=== PATIENT | male | born 1935 | race Caucasian/White ===

== ENCOUNTER 2016-02-26 12:11 | Outpatient (CLI) | payer MEDICARE | END 2016-02-26 12:12 | disposition home or self-care (01) | DX: R05 Cough (principal); C78.00 Secondary malignant neoplasm of unspecified lung; R09.89 Other specified symptoms and signs involving the circulatory and respiratory systems ==

== ENCOUNTER 2016-12-26 09:35 | Outpatient (CLI) | payer MEDICARE ==
--- NOTE | 2016-12-26 20:00 | CONSULTATION NOTE ---
Palliative Care Consultation - Referral Referring Provider: Dr. 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 He had primary colon surgery of a right hemicolectomy followed with palliative chemotherapy of FOLFOX 6/Avastin. He has been treated on maintenance Xeloda and Avastin intermittently. He did have radiofrequency ablation to his liver lesion in 01/2015 as well as radiation to multiple lung nodules though he had developed radiation pneumonitis at that point in time. He does have some residual breathlessness. When he showed progression this last November with his CEA he did get put on Benita T can/Avastin for which she ended up with profound toxicity. And hospitalization with severe diarrhea and dehydration. At to this point in time, he is been very pleased with his quality of life, he has had some difficulty with hand-foot syndrome and intermittent fatigue, but with his last hospitalization is aware that his options are becoming more limited. He did have an initial conversation with Dr. Trujillo regarding end-of-life wishes and they did complete a POLST at that point in time and included do not attempt resuscitation as well as limited interventions.He has 6 children, and a ollie for which she has been 15 years who are very supportive of his journey and very much involved in his care. Medical/Surgical History - Past Medical History Cardiovascular: reports: Hypertension, High cholesterol Respiratory: reports: None, Shortness of breath (hx of radiation pneumonitis) Neuro: reports: Peripheral neuropathy Endocrine/Autoimmune: reports: None GI: reports: GERD, Colon polyps : reports: Benign prostate hypertrophy HEENT: reports: Chronic hearing loss Psych: denies: Depression, Anxiety Derm: reports: Other (hand/foot syndrome SE of chemotherapy) MRSA Hx?: No - Past Surgical History General: reports: Appendectomy, Bowel surgery, Colonoscopy HEENT: reports: Cataracts Social History - Living Situation Living arrangement: At home Living Situation: With spouse/s.o. Support System: He lost his first in 2000 suddenly with a massive cyst stroke,All over. They do take time visiting as well as he travels to see them as if you are out of country. He has a very supportive community through the [employer] as well as other community groups and neighbors whom he sees as helpful to both him and his . Family History - Family History Family History: Brother: , CAD, COPD/Emphysema, Diabetes, Type 2, Mental Illness, Obesity, Renal Disease/Failure Medications/Allergies - Medications Home Medications: Ambulatory Orders Medication Instructions Recorded Confirmed Sennosides [Senna] 8.6 mg PO DAILY PRN 07/17/12 12/26/16 Simvastatin 20 mg PO HS 07/17/12 12/26/16 Loperamide HCl [Anti-Diarrheal] 2 mg PO PRN PRN 07/31/12 12/26/16 Pyridoxine HCl [Vitamin B-6] 100 mg PO BID 08/14/12 12/26/16 Cholecalciferol (Vitamin D3) 5,000 unit PO DAILY 10/30/12 12/26/16 [Vitamin D3] Lactobacillus Rhamnosus GG 1 each PO DAILY 10/30/12 12/26/16 [Probiotic] Melatonin/Pyridoxine [Melatonin 3 1 each PO HS 10/30/12 12/26/16 mg Tablet] Multivitamin with Minerals 1 each PO DAILY 10/30/12 12/26/16 [Multiple Vitamin] Reinholds-3 Fatty Acids [Fish Oil] 300 mg PO DAILY 10/30/12 12/26/16 Calcium Carbonate/Vitamin D3 750 mg PO BID 01/06/13 12/26/16 [Calcium 500 + Vit D Caplet] Acetaminophen 500 mg PO Q6H PRN 09/01/13 12/26/16 Aspirin [Aspir 81] 81 mg PO DAILY 09/29/13 12/26/16 amLODIPine [Norvasc] 5 - 10 mg ORAL PRN PRN 02/23/14 12/26/16 Lisinopril/Hydrochlorothiazide 1 each PO DAILY 11/02/14 12/26/16 [Lisinopril-Hctz 20-12.5 mg Tab] Ondansetron HCl [Zofran] 4 mg PO Q4H PRN 11/28/16 12/26/16 Prochlorperazine Maleate 10 mg PO Q4H PRN 11/28/16 12/26/16 [Compazine] Urea 85 gm TP Q8H PRN 12/27/16 12/27/16 - Allergies Allergies/Adverse Reactions: Allergies Allergy/AdvReac Type Severity Reaction Status Date / Time No Known Drug Allergies Allergy Verified 06/19/12 09:11 Review of Systems - Constitutional Constitutional: reports: Fatigue (improving), Weight stable - Eyes Eyes: reports: Corrective lenses - Ears, Nose & Throat Ears, Nose & Throat: reports: Hearing loss, Hearing aids - Cardiovascular Cardiovascular: reports: Lightheadedness (at times), Decr. exercise tolerance - Respiratory Respiratory: reports: SOB with exertion - Gastrointestinal Gastrointestinal: reports: Good appetite. denies: Diarrhea, Nausea - Genitourinary Genitourinary: reports: Frequency (up to times at night or more) - Musculoskeletal Musculoskeletal: reports: Stiffness, Muscle weakness. denies: Assistive devices - Integumentary Integumentary: reports: Dryness (severe hand/foot disease with peeling on palms/ balls of feet) - Neurological Neurological: reports: Memory problems (feels some "chemo brain" though presented with no deficits) - Psychiatric Psychiatric: reports: Depression (occasional depressive symptoms; not persistent or pervasive) - Endocrine Endocrine: reports: Intolerance to cold, Intolerance to heat - Hematologic/Lymphatic Hematologic/Lymphatic: reports: Anemia, Bruising. denies: Recurrent infections - All Other Systems All Other Systems: reports: Reviewed and negative Physical Exam - Vital Signs Pulse Rate: 83 Respiratory Rate: 18 O2 Saturation: 98 Blood Pressure: 153/90 - Physical Exam General Appearance: positive: No acute distress Eyes Bilateral: positive: Normal inspection ENT: positive: No signs of dehydration Neck: positive: Trachea midline Cardiovascular: positive: Regular rate & rhythm Respiratory: positive: Diminished in bases. negative: Wheezes, Rales, Rhonchi Abdomen: positive: Soft Skin: positive: Dryness (cracking and peeling palms/no s/s of infection) Extremities: positive: No pedal edema Neurologic/Psychiatric: positive: Oriented x3, Mood/affect nml Palliative Care - POLST Patient has POLST: Yes POLST Status: DNR, Limited Interventions Pain: No pain Tiredness/Fatigue: Moderate (4-6), Comment (improving from hospitalization) Drowsiness/Sedation: None Nausea: None Depression: None Anxiety: None Dyspnea: Mild (1-3) Anorexia: None Sleep: Sleeps well Constipation: No Feelings of wellbeing/Perceived Quality of Life: Good, Acceptable Performance Status: Patient at baseline is quite active, he and his like to travel extensively , and are planning to take a trip over the . He is hoping his endurance will be improved at this point in time. He is independent in his ADLs, he does have a trilevel house so he is up and down the stairs, he has noticed that this is with more effort and less certainty but has had no falls. - Palliative Care Discussion: Patient's understanding is he does have a serious illness, he is fairly somewhat practical in his approach he relies on the advice and has confidence in his oncologist. He does recognize that there are limitations as far as a solution at this point in time. He does state "I am not in the last forever" he is hoping that he does have extended quality as well as quantity of life though is recognizing his options are becoming more limited. He is meeting with the [facility] oncologist and hopes to be able to initiate LONSURF. He is confident though if he is denied, that there is an alternative plan for which he of course would pursue at this point in time. He does not perceive himself as having depression or anxious, he has a strong Muslim deandre. With the of his first , he reports this led to some understanding in his own journey so does not really fear . He has not had much experience with hospice other than his brother who a year ago, his Kathy Wo was quite complicated and very extended. His goals are to finish his memoirs, continue the travel and visit his family. At the end of life a at home if this was acceptable to his . He does worry about the burden that this would be and wants to honor her journey with this as well. Results - Lab Results Lab results reviewed: Yes Impression and Recommendations - Palliative Care Impression: This is a ollie 81-year-old gentleman with metastatic colorectal cancer to the lung, liver, peritoneum. He has done actually fairly well through these last few years, most recently though he did have an acute hospitalization with a setback as far as energy, endurance, and recognizing somewhat more the seriousness of his illness. He remains quite hopeful and will be continuing therapy, most likely to restart again after the holidays. His goals again are to focus on quality and quantity of life he presents with low symptom burden today Recommendations/Counseling Done: Fatigue. This is multifactorial in origin, he is starting to improve after his hospitalization. His appetite is good he is building strength. Instruction regarding progressive ambulation, energy conservation, and normalizing this after his recent hospitalization. #2 hypertension. Patient reports this has been fluctuating though has a history of hypertension. He currently is on his hydrochlorothiazide/lisinopril. He has in the past used his amlodipine as needed. Instruction to take BPs for 1 week, if remains elevated greater than 140/90 to start amlodipine 10 mg half tab daily and continue to monitor. Will revisit at next visit. 3. Hand-foot syndrome. Patient awaiting prescription on uric acid, is starting to see some improvement. Instructed if unable to obtain consider using Aquaphor ointment or Eucerin ointment for moisturizing particularly after bathing to seal it N. 4. Advanced care planning. Patient did complete POLST with Dr. Trujillo. I did discuss end-of-life wishes, did provide 5 wishes and conversation project to use as tools for further conversation between he and his . Discussed the continuum of care including hospice. Will revisit as indicated. Time Spent: 60 minutes with greater than 50% of this done in counseling regarding advanced care planning and anticipatory guidance as well as normalizing current expression of grief and loss.
== END 2016-12-26 09:36 | disposition home or self-care (01) ==
LOC: PC 09:35
PROVIDERS: ATTEND Nurse Practitioner Adult Health
DX: Z51.5 Encounter for palliative care (principal); R53.83 Other fatigue; I10 Essential (primary) hypertension; L27.1 Localized skin eruption due to drugs and medicaments taken internally; T45.1X5D Adverse effect of antineoplastic and immunosuppressive drugs, subsequent encounter; C19 Malignant neoplasm of rectosigmoid junction; C78.7 Secondary malignant neoplasm of liver and intrahepatic bile duct; C78.00 Secondary malignant neoplasm of unspecified lung; C78.6 Secondary malignant neoplasm of retroperitoneum and peritoneum; Z66 Do not resuscitate; Z79.899 Other long term (current) drug therapy; Z79.82 Long term (current) use of aspirin; Z92.3 Personal history of irradiation
CPT/HCPCS: 99205

== ENCOUNTER 2017-09-19 12:04 | Outpatient (CLI) | payer MEDICARE ==
--- NOTE | 2017-09-20 11:35 | Nuclear Medicine Report ---
Procedure Date: 09/19/2017 Accession Number: [id number] / [id number] Procedure: NM - Bone Whole Body CPT Code: FULL RESULT: EXAM: BONE SCAN EXAM DATE: 09/19/2017 04:23 PM. CLINICAL HISTORY: RT HIP PAIN,COLON CANCER. COMPARISON: 08/28/2017. TECHNIQUE: Following the intravenous administration of 33.4 mCi of technetium 99m MDP and an appropriate delay, a whole-body scan was performed in anterior and posterior projections. Site-specific spot views of the region of interest were obtained in various projections. FINDINGS: Exam Quality: Normal overall osseous radiotracer uptake. Physiological tracer uptake in bilateral collecting systems. Skull: No focal uptake. Thorax: No focal lesions in ribs or sternum. Pelvis: No focal lesions. Spine: There is an area of photopenia on the right side of the mid thoracic spine. IMPRESSION: 1. There is an area of photopenia on the right side of the mid thoracic spine, question previous radiation treatment to this area. 2. Otherwise no suspicious findings. [facility]
== END 2017-09-19 12:05 | disposition home or self-care (01) ==
LOC: DI 12:04
PROVIDERS: ATTEND Internal Medicine Hematology & Oncology
DX: M25.551 Pain in right hip (principal); C18.9 Malignant neoplasm of colon, unspecified
CPT/HCPCS: 78306

== ENCOUNTER 2018-04-30 14:00 | Outpatient (CLI) | payer MEDICARE ==
--- NOTE | 2018-04-30 19:59 | CONSULTATION NOTE ---
Palliative Care Follow Up - Referral Referring Provider: Dr. 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 His primary colon surgery was a right hemicolectomy, followed with palliative chemotherapy of FO LFOX 6/and Avastin. He has had intermittent chemotherapy since this time, also including a RFA to the liver lesion in 01/2015, and radiation to the lung lesion in 09/2015. He has been off chemotherapy since 01/2018. He did have a good response but very poor tolerance to reduced dosing of FOLFOX 6/Avastin. He has had continued upper abdominal pain due to partial bowel obstruction intermittently, and most recently presented to the oncologist yesterday with increasing abdominal pain, did have a abdominal x-ray that showed large stool burden mostly on the left abdomen, with increased chronic bowel dilatation proximal to descending colon. 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 When he saw the oncologist yesterday in the clinic, they did attempt to do a mineral oil enema and disimpaction, patient has severe hemorrhoids and tolerated this poorly. Patient did want to try conservative management versus ED, I did have him take about 6 ounces of mag citrate this a.m., he has not been doing a regular bowel program other than intermittent MiraLAX. He has had alternating constipation a nd diarrhea, with no real pattern or follow-through. Patient has also lost per his report about 50pounds since January, as well as increased generalized weakness, decreased intake and early satiety. He does have intermittent nausea and using ondansetron, most likely this is been adding to his constipation. He does have morphine 15 mg immediate release, has uses intermittently and was started yesterday at his appointment on fentanyl 12 mcg patch applied last night. He does understand his current situation, Dr. Trujillo was quite honest that he most likely had about 2-3 months, had recommended follow-up with palliative care and/or hospice. Patient has been very resistant to talking to both family and providers regarding goals of care and his pending decline. Now he presents fairly acutely, with review fairly significant acute decline over the last 2-3 weeks and slower decline over the last 2-3 months. Patient does present with moderate distress, reported was able to pass a couple small chunks of stool, but minimum in amount. Patient does present with distended abdomen, tender to palpation particularly in the lower quadrant, he does have bowel tones, they are not high-pitched or tinkling at this point in time. On examination he does have external engorged hemorrhoids, does report bleeding in the past with bowel movements. Has been using preparation H with some intermittent relief. Patient quite anxious as it was severely painful yesterday with the enema, about pending intervention, goal was to try tap water enema. Social History - Living Situation Living arrangement: At home Living Situation: With spouse/s.o. Support System: Patient is to Charity, they have been 17 years. He has 6 children, and he she has several children as well. 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 He does like to travel, has 2 children out of country. He has a very supportive community through his [employer] as well as friends and neighbors. Medications/Allergies - Medications Home Medications: Ambulatory Orders Medication Instructions Recorded Confirmed Cholecalciferol (Vitamin D3) 5,000 unit PO DAILY 10/30/12 04/29/18 [Vitamin D3] Aspirin [Aspir 81] 81 mg PO DAILY 09/29/13 04/29/18 Lisinopril/Hydrochlorothiazide 1 tab PO DAILY 11/19/17 04/29/18 [Lisinopril-Hctz 20-12.5 mg Tab] Acetaminophen 1 tab ORAL DAILY PRN 12/10/17 04/29/18 Melatonin 1 tab ORAL DAILY 12/10/17 04/29/18 Multivitamin [Multivitamins] 1 tab ORAL DAILY 12/10/17 04/29/18 Ondansetron [Ondansetron Odt] 1 tab ORAL DAILY PRN 12/10/17 04/29/18 Prochlorperazine Maleate 1 tab ORAL DAILY 12/10/17 04/29/18 [Compazine] Pyridoxine HCl [Vitamin B-6] 1 tab ORAL DAILY 10/29/18 03/18/19 Senna [Senokot] 1 tab ORAL DAILY 12/10/17 04/29/18 Diphenoxylate/Atropine [Lomotil] 2 each PO ONCE PRN #75 tablet 12/21/17 04/29/18 Morphine Sulfate 15 mg PO Q4HR PRN #30 tablet 12/25/17 04/29/18 Omeprazole 20 mg PO DAILY 01/14/18 04/29/18 Hyoscyamine [Levsin] 0.125 mg SL PRN PRN 01/30/18 04/29/18 Simvastatin 1 tab ORAL DAILY #90 tablet 03/28/18 Morphine Sulfate 1 - 2 tab PO Q4HR PRN 04/29/18 04/29/18 fentaNYL 12 MCG PATCH [Duragesic 12 mg TOP PRN PRN 04/29/18 04/29/18 12mcg patch] - Allergies Allergies/Adverse Reactions: Allergies Allergy/AdvReac Type Severity Reaction Status Date / Time No Known Drug Allergies Allergy Verified 04/15/18 11:10 Review of Systems - Constitutional Constitutional: reports: Fatigue, Weakness, Poor appetite, Weight loss. denies: Fever, Chills - Ears, Nose & Throat Ears, Nose & Throat: reports: Hearing loss, Hearing aids, Dry mouth - Cardiovascular Cardiovascular: reports: Decr. exercise tolerance. denies: Chest pain - Respiratory Respiratory: reports: SOB with exertion. 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 negative: Pharyngeal erythema, Oral lesions Neck: positive: No JVD, Trachea midline Cardiovascular: positive: Regular rate & rhythm, Tachycardia Respiratory: positive: No respiratory distress, Diminished in bases Abdomen: positive: Tenderness, Guarding, Distended Skin: positive: Pallor, Dryness Neurologic/Psychiatric: positive: Oriented x3, Weakness, Flat affect Palliative Care - POLST Patient has POLST: Yes POLST Status: DNR, Selective Treatment Pain: Pain worsening, Location (Patient placed fentanyl 12 mcg patch last night. Has not noticed any increased or improvement in his pain, feels he has been a little bit more sedated/somnolent but no overt confusion. Patient has taken intermittent morphine at 15 mg over the last several weeks, is unable to quantify the amount or the response. He also uses medical marijuana 1-1 ratio, with fluctuating response as well. Patient describes pain as intermittent in nature, sharp stabbing to a dull ache, with pressure. Can be relieved with frequent position changes, and with relief of constipation. Had been tried on high Cosamin because of the cramping colicky type of pain, with intermittent relief, had to stop secondary to urinary retention. Patient with poor pain control at this point in time, but focused on relieving constipation.) Tiredness/Fatigue: Severe (7-10) Drowsiness/Sedation: Moderate (4-6) Nausea: Mild (1-3) (Does get intermittent nausea and early satiety with any kind of fluid or oral intake. Does use ondansetron up to 1-2 times a day, has not had any overt vomiting.) Anorexia: Severe (7-10), Weight loss Constipation: Yes, Opoid induced, Unmanaged, Comment (Patient is unable to describe any consistent bowel pattern or program he is following, does alternate between constipation and diarrhea. Uses MiraLAX on a fairly regular basis, with intermittent senna.) Feelings of wellbeing/Perceived Quality of Life: Poor, Worsening Performance Status: Description does appear like his functional status has been declining, does spend quite a bit of time in his recliner watching TV. Less tolerance for activity, particularly in the last couple weeks. - Palliative Care Discussion: Asked about patient's understanding of his disease, he does share P her doctor Ronnie's prognosis of 2-3 months yesterday. He does have a FATIMAH [facility], this was filled out with the oncologist during the hospitalization in 2017. He has not done any further advanced directives or conversation regarding goals of care her wishes. He did have an appointment today to talk with someone about 5 wishes, in the context of conversation with his we did discuss that at this point in time his goal conversation needs to be more specific, and focused on the pending decisions that are coming his way. When discussed end of life, they have a couple years ago toward [facility]. It is currently been unavailable the last couple months, when asked a backup plan, he would like to be taken care of at home. Did introduce the concept of hospice, particularly providing Charity the support. Charity's is a case management social worker, unfortunately she has had 2 bad experiences with hospice previously in [place] with her perception of overmedication and not balancing or rub monitoring patient's rights to talk to me and control. She is though willing to consider, particularly given the need to have support 24/ if she were to take on caregiving at home. We also talked about the need to have more conversation regarding weighing benefits and burdens on particularly around hospitalization, aggressive interventions, including but not limited to surgery. He did understand given his conversation with Dr. Trujillo yesterday he would not be a surgical candidate, though this may not rule out for a palliative colostomy though. Patient has been fairly focused on treatment, and has left very little information as far as wishes regarding end of life, initiated some conversation around anticipatory guidance regarding pending decline with the need to further explore in the near future as his disease and symptoms are progressing Results - Lab Results Lab results reviewed: Yes Impression and Recommendations - Palliative Care Impression: This is an 83-year-old gentleman with stage IV colorectal cancer, who no longer is a candidate for further chemotherapy, and presents with concern for impending bowel obstruction and/impaction of stool. Patient has had declining fairly acutely over the last 2-3 weeks, and slow steady decline with weight loss, fatigue, and weakness over the last several months. Palliative care attempting to establish goals of care, and deal with acute symptom management. Patient wanted to try conservative approach first, but presents with at todays visit with high symptom burden. Recommendations/Counseling Done: 1. Impaction. Patient without response from taking 6 ounces of mag citrate and bicipital suppositories this a.m., though than small hard chunk of stool. Attempted gentle soapsuds enema, patient unable to retain fluid, nor tolerate enema tubing ascending greater than 6-8 inches, did not hit any stool in rectal vault, and with hemmorhoids unable to tolerate rectal exam. Did have patient lay on left side, and agreed to call back in about an hour. Patient of great concern with history of partial obstruction, and now unable to impact bowel status. Did discuss in the context of follow-up plan, if patient does not move bowels, may need intervention including but not limited to more aggressive enemas with IV pain medicine available, may consider use of Relistor, will evaluate by phone in the next couple hours. 2. Uncontrolled pain. Patient was initiated on fentanyl 12 mcg patch, unfortu nately with fluctuating bowel status unclear baseline pain. Patient has had fluctuating pain, mostly located in his lower abdomen. Has been using morphine 15 mg IR And medical marijuana neither with good or sustained relief. Will need to revisit, but dealing with acute impaction at this visit. Did encourage to continue with intermittent morphine for pain control, will increase bowel program to address when stabilized. 3. Dehydration. Patient presents with symptoms of dehydration, did receive 1 L of normal saline yesterday. Has had less than 8 ounces of fluid today. This is related to early satiety, bloating, and intermittent nausea. Patient encouraged to take frequent sips, but if does present with vomiting or increased discomfort, will need further follow-up at the ED. 4. Urinary retention. Patient reports intermittent and fluctuating, does feel like has been up voiding. Given his discomfort over his pubic bone and lower abdomen, and concerned may be adding to his pain. Reports does have history of BPH, but was taken off medications previously, also at high risk related to opioid use and constipation. Encouraged to monitor for worsening symptoms if unable to urinate. 5. Advanced care planning. Patient does have a FATIMAH ST in place, though given the situation and our initial meeting, did not revisit at this visit. Patient does understand his poor prognosis, but does present with little insight into the implications regarding this. Did have opportunity to speak separately with regarding concerns of patient's high symptom burden, rapid decline, and need to further define goals of care given patient may need hospitalization for control of symptoms. Introduced the continuum of care including hospice benefit, patient does meet prognostic criteria, but goals are not defined as of yet. Will need to address current acute situation before able to focus and delve into this conversation further. Agreed will contact [facility] though to check on status of openings. ADDENDUM: 5:30 Call to home to follow-up on results of enema. Patient reports passed colored water, no stool passed nor noted increased rectal pressure. Suspect stool is still high up. Patient did take 2 senna and morphine, concerned has not been drinking, has just been resting. Spoke to patient on phone, concern regarding dehydration, if patient choosing not to follow-up at ED , needs to push fluids with goal to finish Ensure and Gatorade in the next couple hours, and continue frequent sips. Patient continues with abdominal discomfort, and intermittent sharp shooting pains, reviewed concern for impaction versus worsening obstruction, would recommend low threshold for follow-up at ED. Hesitation from patient's perspective, as had talked to a friend who was in the ED for 4-5 hours yesterday, and does not want to endure the wait either. Reviewed if patient does not improve by morning, or worsens through the evening would recommend follow-up at ED secondary to goals have not been defined and established, as well as high symptom burden of pain, dehydration and constipation vs obstruction. ADDENDUM: 1900 Call from , patient has agreed to go up to the hospital, requested I called the ED to give report as agreed. He is having increased trouble urinating and has not had any stool out. When he moves he says it is a sharp pain in the middle of his abdomen, but is able to get up and ambulate back and forth to the bathroom. He does not want to be "in the hospital" but is quite nervous by his worsening condition. Did call up and talk to jayna Curry ve report regarding patient's worsening condition and concern for obstruction versus impaction, undefined goals of care at this point in time, which would hopefully be able to further explored if patient had pain addressed. When called to ED, emergency room is full and busy, this was shared with patient and given their concerns. Recommended though given his increasing symptoms, or if it becomes acute could call 911 if need assistance. At this point in time does feel she could take him up in the car. We did discuss despite wait time, would at least not to be dealing with this in the middle of the night, patient very reluctant. Last communication message was they were going to wait until conductor road freight, recommended low threshold for increasing pain, vomiting, or distress including not able to urinate to either call 911 or head to the ED. Will complete my note so it is available for staff. At this point their plan share was to go early am. Time Spent: 75 minutes with greater than 50% of this done in counseling, acute intervention of tap water enema, providing anticipatory guidance. Unfortunately given the acute situation, We will need to further follow-up regarding defining goals of care, and establishing plan for ongoing decline.
== END 2018-04-30 14:01 | disposition home or self-care (01) ==
LOC: PC 14:00
PROVIDERS: ATTEND Nurse Practitioner Adult Health
DX: Z51.5 Encounter for palliative care (principal); K59.03 Drug induced constipation; T40.2X5A Adverse effect of other opioids, initial encounter; G89.3 Neoplasm related pain (acute) (chronic); C18.9 Malignant neoplasm of colon, unspecified; C78.00 Secondary malignant neoplasm of unspecified lung; C78.7 Secondary malignant neoplasm of liver and intrahepatic bile duct; C78.6 Secondary malignant neoplasm of retroperitoneum and peritoneum; E86.0 Dehydration; N40.1 Benign prostatic hyperplasia with lower urinary tract symptoms; R33.8 Other retention of urine; K64.4 Residual hemorrhoidal skin tags; Z90.49 Acquired absence of other specified parts of digestive tract; Z79.899 Other long term (current) drug therapy; Z92.3 Personal history of irradiation; Z92.21 Personal history of antineoplastic chemotherapy; Z79.891 Long term (current) use of opiate analgesic; Z66 Do not resuscitate
CPT/HCPCS: 99350

== ENCOUNTER 2018-05-06 09:00 | Outpatient (CLI) | payer MEDICARE ==
--- NOTE | 2018-05-06 20:29 | CONSULTATION NOTE ---
Palliative Care Follow Up - Referral Referring Provider: Dr. 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 His primary colon surgery was a right hemicolectomy, followed with palliative chemotherapy of FOLFOX 6/and Avastin. He has had intermittent chemotherapy since this time, also including a RFA to the liver lesion in 01/2015, and radiation to the lung lesion in 09/2015. He has been off chemotherapy since 01/2018. He did have a good response but very poor tolerance to reduced dosing of FOLFOX 6/Avastin. He has had continued upper abdominal pain due to partial bowel obstruction which has fluctuated for several months alternating with constipation and diarrhea. Has been more difficult last few weeks, and most recently presented to the oncologist last wee with increasing abdominal pain, did have a abdominal x-ray that showed large stool burden mostly on the left abdomen, with increased chronic bowel dilatation proximal to descending colon. 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 Last week tried conservative management with mag citrate, and aggressive bowel program. Given TWE 04/30 without ability to hold fluids, but had been trying to avoid ED and on morning of 05/01 prior to going bowels moved large amounts of liquid stool with "hard chunks". Has continued to have loose watery stools with senna//Miralax daily since then. Current pain regimen is fentanyl 12 mcg patch, does have pain usually escalating mid afternoon, has used only one morphine 15 mg tabs, yesterday was a significant amount of pain and use 30 mg. Patient is continued to be quite weak, has been able to manage to go back and forth to the bathroom, is mostly bedbound. He is only taking sips of fluid, has had a few bites of applesauce. Presents quite cachectic, moderately dehydrated, and mild confusion. He is able to track the conversation, answer yes/no questions, but having difficulty with poor recall of the last few days as well as processing information. Today his 's birthday, her daughter is present as well as her sister who is a nurse. Also joining us is one of Gilbert's six childre, son Aaron Gomez, all are trying to gather information to best be able to plan for end of life. Family meeting to identify the "what next"", what to expect, and discuss prognosis in light of family wanting to say their "good-byes". Patient is aware has limited prognosis, but very little insight into the acute decline and his current situation. Social History - Living Situation Living arrangement: At home Living Situation: With spouse/s.o. Support System: Patient and have been almost 17 years, he does have 6 children, 2 of which are out of country. They do have a very supportive family in community, are very much involved in the [employer] worship. They had toured [facility] and it helped for transition there, did talk to Luiza Rowell and put on "waiting list" as to open 05/27 after remodel. At this point plan B is to focus on keeping at home for end of life. Medications/Allergies - Medications Home Medications: Ambulatory Orders Medication Instructions Recorded Confirmed Aspirin [Aspir 81] 81 mg PO DAILY 09/29/13 05/06/18 Ondansetron [Ondansetron Odt] 4 mg ORAL Q4HR PRN 12/10/17 05/06/18 Senna [Senokot] 2 tab ORAL BID 12/10/17 05/06/18 Morphine Sulfate 15 mg PO Q4HR PRN #30 tablet 12/25/17 05/06/18 Omeprazole 20 mg PO DAILY 01/14/18 05/06/18 fentaNYL 12 MCG PATCH [Duragesic 12 mg TOP .72 04/29/18 05/07/18 12mcg patch] Morphine Sulfate [Morphine Sulf 5 - 10 mg PO .Q2 PRN 05/06/18 05/06/18 Oral (Roxanol)] Polyethylene Glycol 3350 [Miralax] 17 gm PO DAILY 05/06/18 05/06/18 - Allergies Allergies/Adverse Reactions: Allergies Allergy/AdvReac Type Severity Reaction Status Date / Time No Known Drug Allergies Allergy Verified 04/15/18 11:10 Review of Systems - Constitutional Constitutional: reports: Fatigue, Weakness, Poor appetite, Weight loss. denies: Fever - Eyes Eyes: reports: Vision loss, Corrective lenses - Ears, Nose & Throat Ears, Nose & Throat: reports: Hearing loss, Hearing aids, Dry mouth, Other (taste changes) - Cardiovascular Cardiovascular: reports: Decr. exercise tolerance - Respiratory Respiratory: reports: SOB with exertion. denies: SOB at rest - Gastrointestinal Gastrointestinal: reports: Abdominal pain, Abdominal distention, Diarrhea (loose stools 1-2 x day), Nausea (occasionally), Vomiting (if drinks too much fluid at once; last time Sunday), Bloating, Poor appetite, Other (poor fluid intake; probably 12-16 ounces /24 hours) - Genitourinary Genitourinary: reports: Incontinence, Other (distressed about hx of chapa placement; but describing symptoms of intermittent retention) - Musculoskeletal Musculoskeletal: reports: Muscle weakness, Other (mostly bedbound; has been able to get to BR;) - Integumentary Integumentary: reports: Dryness - Neurological Neurological: reports: Memory problems (patient presents With short-term memory deficits, difficulty tracking conversation, deferring to for most of recall; Patient also is very hard of hearing, makes it complicated catch all the information for him.) - Psychiatric Psychiatric: reports: Anxiety - All Other Systems All Other Systems: reports: Reviewed and negative Physical Exam - Vital Signs Temperature: 96.8 C Pulse Rate: 80 Respiratory Rate: 16 O2 Saturation: 98 (ra @ rest) Blood Pressure: 132/80 (laying and 128/72 sitting) - Physical Exam General Appearance: positive: Mild distress, Anxious Eyes Bilateral: positive: Normal inspection ENT: positive: Dry mucous membranes, Other (c/o taste changes/ no s/s candidiasis). negative: Pharyngeal erythema Neck: positive: No JVD, Trachea midline Cardiovascular: positive: Regular rate & rhythm Respiratory: positive: No respiratory distress, Diminished in bases. negative: Wheezes, Rales, Rhonchi Abdomen: positive: Soft, Nml bowel sounds, Tenderness, Guarding, Other (patient with severe ventral hernia; wears abdominal binder at baseline; no bladder distension but tenderness noted over pelvic region) Skin: positive: Pallor, Dryness Extremities: positive: No pedal edema Neurologic/Psychiatric: positive: Mood/affect nml, Disoriented to time, Weakness, Flat affect Palliative Care - POLST Patient has POLST: Yes POLST Status: DNR, Comfort Measures (Redone at visit for hospice admit) Pain: Pain worsening, Location (Patient unable to scale pain on a 1-10 basis, gets actually quite agitated when asked. We did go ahead and scale pain from mild to moderate moderate to severe to severe and this appeared to work well for him. He has been waiting until pain is severe to take his MS 15 mg tabs, but then goes to sleep. Agreed 12 mcg fentanyl patches working at baseline, but need to work with breakthrough pain medication before titrating up. 1 of his 's main concerns, is patient is not going to be able to participate in [facility] good[facility]es and will be somnolent. This is based on previous experiences with hospice, goal is to find balance.) Tiredness/Fatigue: Severe (7-10) Drowsiness/Sedation: Moderate (4-6) Nausea: Mild (1-3), With vomiting (Sunday with large volume of fluid; none yesterday or today) Depression: Mild (1-3) Anxiety: Moderate (4-6) Dyspnea: None Anorexia: Severe (7-10) Sleep: Sleeps well Constipation: Intermittent constipation Feelings of wellbeing/Perceived Quality of Life: Poor, Worsening Performance Status: Patient most comfortable laying down flat. He is in a water bed, this does make it difficulty to get in and out of the bed. Is willing to consider hospital bed for ease of transfers and care. Patient has been able to ambulate to the bathroom, though is quite weak and shaky. Patient has been over several weeks experiencing functional decline. I would put him at a PPS of 40%. - Palliative Care Discussion: Family meeting to include Charity, her sister who is a nurse, patient's son Aaron, myself and patient. Patient does understand he has a poor prognosis, was told to months by the oncologist, given delicate "dance", discussed in the context the patient unable to eat and drink but small amounts, ongoing dehyd ration, and symptoms of partial bowel obstruction most likely talking days to week. This is very difficult for patient to grasp, but given conversation regarding goals, finally landed on the language of "forecasting", that family needs to come as soon as possible to say their goodbyes. Does appear to have some insight that this is more urgent. Had to readdress FATIMAH as T, in the context patient has been somewhat unclear if wants to return to the hospital, did clarify patient would not want colostomy, nor at this point given his cachectic and frail status would not be appropriate or tolerated. Patient does want to be at home, or [facility], for his end of life. We discussed in the context of this, will need support and recommendation to transition to hospice. Given his mild confusion, and difficulty tracking, discussed globally hospice support, including goal on comfort, not returning to hospital unless symptoms uncontrollable at home, as well as team support. FATIMAH ST was completed with comfort is at goal. Conversation included requiring a hospital bed, and where to place this for maximum support, patient participated in this conversation is somewhat convoluted. Met with Aaron, Charity, and sister downstairs separate from patient. Discussed given the intricacies of the hospice benefit, patient's ongoing mild confusion, would recommend introduction of the hospice team and Charity as D POA to sign for the benefit. Provided anticipatory guidance, if patient does fully obstruct, We would put patient n.p.o. and prognosis most likely days. He does have a high likelihood of this happening. We also discussed related to his ongoing partial obstruction, to offer soft foods and fluids for comfort, and not to force recognizing this is part of the dying process. If more in-depth information regarding hospice team and hospice benefit. Reviewed hospice home health aide, would call to answer questions as well prior to admit tomorrow. Aaron will be contacting his other siblings, and move up the timeline for coming to visit, trying to honor not overwhelming Charity, but also their need to say good-byes. Impression and Recommendations - Palliative Care Impression: This is an 83-year-old gentleman who has colon cancer with liver, lung, and peritoneal metastases. He does continue to present with symptoms of partial o bstruction, dehydration, and fluctuating pain. Given his ongoing deterioration, Will transition to hospice to meet goals to be able to be at home, be with family, and end-of-life at [facility] if timing/situation allows. Recommendations/Counseling Done: 1. Acute on chronic pain secondary to partial bowel obstruction, multifactorial in origin. Patient with known scar tissue, and progressive cancer, baseline fentanyl 12 mcg patch with some improvement, but continues with fluctuating pain. When patient uses MS 15, does sleep, and waits till it is severe. Counseling provided regarding breakthrough pain management, will provide morphine concentrate 20 mg/ML; instructed to use 5-10 mg every 2 hours as needed when pain starts to escalate to avoid severe pain levels. Requested they track this on a regular basis, to be able to determine if need to titrate up patch. Patient is only been using 15 mg in 24 hours/she is 30 mg yesterday with severe pain crisis x1. Goal is to find balance of alertness versus comfort. 2. Constipation. Patient currently now having intermittent loose stools on 2 senna twice daily, did not take MiraLAX yesterday. Counseling provided goal is to have one to two loose or soft stool daily, will have hospice team titrate accordingly either up or down. Patient high risk for total obstruction, will at that point in time need to be n.p.o. and sips of fluid for comfort only. Up to this point has only had some intermittent vomiting, abdomen is been soft, and bowel tones positive in all four quadrants. 3. Dehydration. Patient is unable to keep up with fluid status needs, encouraged to continue with frequent sips of Ensure and Gatorade as tolerated, at this point in time focus is on comfort feeding. 4. Advanced care planning. Family meeting, defining goals which will be comfort based, POLST redone. Transition to hospice, coordination with hospice home health aide, notified Dr. Trujillo of pending admit to hospice. Counseling provided regarding hospice benefit, anticipatory guidance given patient's current condition, psychosocial support provided. Time Spent: 75 minutes with greater than 50% of this done in counseling regarding defining goals of care, introduction of hospice, regarding pain and symptom management and anticipatory guidance
== END 2018-05-06 09:01 | disposition home or self-care (01) ==
LOC: PC 09:00
PROVIDERS: ATTEND Nurse Practitioner Adult Health
DX: Z51.5 Encounter for palliative care (principal); G89.3 Neoplasm related pain (acute) (chronic); C18.9 Malignant neoplasm of colon, unspecified; C78.00 Secondary malignant neoplasm of unspecified lung; C78.7 Secondary malignant neoplasm of liver and intrahepatic bile duct; C78.6 Secondary malignant neoplasm of retroperitoneum and peritoneum; K59.00 Constipation, unspecified; E86.0 Dehydration; R41.0 Disorientation, unspecified; H91.93 Unspecified hearing loss, bilateral; Z90.49 Acquired absence of other specified parts of digestive tract; Z92.3 Personal history of irradiation; Z79.891 Long term (current) use of opiate analgesic; Z74.01 Bed confinement status; Z66 Do not resuscitate
CPT/HCPCS: 99350